=== PATIENT | male | born 1955 | race Caucasian/White ===

== ENCOUNTER 2022-02-27 15:36 | Emergency (ER) | payer MEDICARE, SELFPAY ==
[2022-02-27 15:51] VITALS: BP 134/66; PULSE 76; RESP 18; TEMP 37.2; O2SAT 97; BMI 26.1
--- NOTE | 2022-02-27 16:00 | DI.CT.S_ITS ---
PROCEDURE: CT STROKE INDICATIONS: Positive BE-FAST, Stroke symptoms TECHNIQUE: Noncontrast 4.5 mm thick angled axial sections acquired from the foramen magnum to the vertex, with coronal reformats. For radiation dose reduction, the following was used: automated exposure control, adjustment of mA and/or kV according to patient size. COMPARISON: None. FINDINGS: Image quality: Excellent. CSF spaces: Basal cisterns are patent. No extra-axial fluid collections. The ventricles are symmetric in size and shape. Brain: No intracranial bleeds or masses. There is mild cerebral volume loss for age, with resultant ventricular and sulcal prominence. There are periventricular and deep white matter chronic small vessel ischemic changes. There is intracranial internal carotid artery atherosclerosis. Skull and face: Calvarium and visualized facial bones appear intact, without suspicious lesions. Sinuses: There is a small mucous retention cyst in the right maxillary sinus. The mastoids are clear. IMPRESSION: 1. No acute intracranial abnormalities. 2. Cerebral volume loss and chronic microvascular ischemic changes. 3. A mucous retention cyst in the right maxillary sinus. The result was discussed with Dr. Casillas. This study fulfills neurological imaging criteria for inclusion or exclusion of acute stroke therapies based on available published neurological guidelines. Dictated by: Malachi Arciniega M.D. on 02/27/2022 at 16:23 Approved by: Malachi Arciniega M.D. on 02/27/2022 at 16:25
[2022-02-27 16:21] LABS: Add Manual Diff / Slide Review NO; Basophils Absolute Auto 100 /uL (0-100); Basophils Percent Auto 1.2 % (0-2); Eosinophils Absolute Auto 200 /uL (0-450); Hematocrit 41.8 % (41-53); Hemoglobin 14.4 g/dL (13.5-17.5); Lymphocytes Absolute Auto 1700 /uL (1100-4500); Lymphocytes Percent Auto 19.9 % (25-40); Mean Corpuscular HGB Conc 34.4 % (30-36); Mean Corpuscular Hemoglobin 29.7 PG (26-34); Mean Corpuscular Volume 86.2 fL (80-100); Monocytes Absolute Auto 700 /uL (0-900); Monocytes Percent Auto 8.8 % (3-14); Neutrophils Absolute Auto 5600 /uL (1500-7000); Neutrophils Percent Auto 67.1 % (50-75); Platelet Count 287 X10^3/uL (150-400); Red Blood Cell Count 4.85 X10^6/uL (4.5-5.9); Red Cell Distribution Width 14.2 % (11.6-14.8); White Blood Cell Count 8.3 X10^3/uL (4.5-11.0)
[2022-02-27 16:35] LABS: Prothrombin Time 11.5 SECONDS (10.1-12.7)
[2022-02-27 16:38] LABS: Alanine Aminotransferase 28 IU/L (<50); Albumin 4.3 g/dL (3.5-5.0); Albumin Globulin Ratio 1.3 (1.0-2.8); Alkaline Phosphatase 55 U/L (38-126); Aspartate Aminotransferase 31 IU/L (17-59); BUN Creatinine Ratio 20.2 (6-22); Bilirubin Total 0.7 mg/dL (0.2-1.3); Blood Urea Nitrogen 17 mg/dL (9-20); Calcium 9.2 mg/dL (8.4-10.2); Carbon Dioxide 27 mmol/L (22-32); Chloride 105 mmol/L (98-107); Creatine Kinase 102 U/L (55-170); Estimated Glomerular Filt Rate > 60 mL/min (>60); Globulin 3.2 g/dL (1.7-4.1); Glucose 119 mg/dL (80-110); HEMOLYSIS < 15 (0-50); PTT Partial Thromboplastin Tim 31 SECONDS (26.4-36.2); Potassium 3.5 mmol/L (3.4-5.1); Sodium 141 mmol/L (137-145); Total Protein 7.5 g/dL (6.3-8.2)
[2022-02-27 16:50] LABS: Troponin I < 0.012 ng/mL (0.01-0.034)
[2022-02-27 16:53] LABS: CKMB % Relative Index 1.4 % (1.5-5.0); Creatine Kinase MB 1.42 ng/mL (<2.37)
[2022-02-27 20:02] VITALS: BP 133/68
[2022-02-27 20:03] VITALS: PULSE 60; RESP 18; O2SAT 99
[2022-02-27 20:04] VITALS: BP 133/68; PULSE 67; RESP 16; O2SAT 100
--- NOTE | 2022-02-27 20:10 | ED_ITS ---
HPI - Headache General Chief Complaint: Headache Stated Complaint: migraine/Lt. side drooping Time Seen by Provider: 02/27/22 20:08 Mode of arrival: Ambulatory History of Present Illness HPI Narrative: 66-year-old male nonsmoker with noncontributory chronic medical history presents with a chief complaint of right-sided facial weakness that he noted this morning. He denies other symptoms such as dizziness, weakness or lightheadedness. He denies any blurred or double vision. He denies any trouble with balance or extremity numbness, tingling or weakness. He denies any chest pain or shortness of breath. He states that about 1 week ago he fell backwards and struck his head and has had lingering headaches ever since. He denies any loss of consciousness or use of blood thinners. The neurologic symptoms of his face were not noted until today. He denies any fever chills nor runny nose, sore throat or cough. Related Data Allergies Allergy/AdvReac Type Severity Reaction Status Date / Time No Known Drug Allergies Allergy Verified 02/27/22 15:55 Review of Systems Review of Systems Narrative: GENERAL: See HPI HEENT: See HPI RESPIRATORY: Denies dyspnea, cough, wheezing, hemoptysis, sputum. CARDIOVASCULAR: See HPI GASTROINTESTINAL: See HPI : Denies dysuria, frequency, incontinence, hematuria, urinary retention. MUSCULOSKELETAL: denies weakness, joint pain, or bony pain SKIN: Denies rash, skin lesions, or other NEUROLOGIC: See HPI PSYCHIATRIC: No concerning psychosocial issues. 12 point review of systems is negative except for those stated above Patient History Social History Smoking Status: Never smoker Smoking Status: Never smoker alcohol intake frequency: 3 or more drinks per day Alcohol type: beer Exam Narrative Exam Narrative: GENERAL: [66] year old patient appears stated age. Well-developed patient, in mild distress. HEAD: Atraumatic. Normocephalic. EYES: Pupils equal round and reactive. Extraocular motions intact. No scleral icterus. No injection or drainage. ENT: Nose without bleeding, purulent drainage. Throat without erythema, tonsil lar hypertrophy or exudate. Airway patent. NECK: Trachea midline. Non tender CARDIOVASCULAR: Regular rate and rhythm without murmurs, gallops, or rubs. RESPIRATORY: Clear to auscultation. Breath sounds equal bilaterally. No wheezes, rales, or rhonchi. GASTROINTESTINAL: Abdomen soft, non-tender, nondistended. EXTREMITIES: No edema or joint tenderness. BACK: Nontender without deformity or crepitance. No flank tenderness. NEURO: AOx3. SKIN: No rash or erythema of visible areas Initial Vital Signs Initial Vital Signs: Vital Signs Temperature 98.9 F 02/27/22 15:51 Pulse Rate 76 02/27/22 15:51 Respiratory Rate 18 02/27/22 15:51 Blood Pressure 134/66 02/27/22 15:51 Pulse Oximetry 97 02/27/22 15:51 Oxygen Delivery Method 02/27/22 15:51 Scores NIH Stroke Scale Level of Conciousness: Alert, keenly responsive Ask month/age: Answers both questions correctly. Open/close eyes, close hand: Performs both tasks correctly Best gaze horizontal: Normal Visual haskins: No visual loss Facial palsy: Minor paralysis, flattened nasolabial fold, asymmetry on smiling Left arm drift: No drift for full 10 sec Right arm drift: No drift for full 10 sec Left leg drift: No drift for full 5 sec Right leg drift: No drift for full 5 sec Limb ataxia: Absent Sensory on face/arms/legs: Normal, no sensory loss Best language: No aphasia, normal Dysarthria: Normal Extinction or inattention: No abnormality Total NIH Stroke scale score: 1 Course Orders Ordered: ED Orders 02/27/22 16:00 CT Stroke Stat 02/27/22 16:05 Complete Blood Count AUTO DIFF Stat Comprehensive Metabolic Panel Stat Magnesium Stat Partial Thromboplastin Time Stat Prothrombin Time INR Stat Troponin & CK Cardiac Panel Stat 02/27/22 16:25 EKG-12 Lead Stat Vital Signs Vital signs: Vital Signs - 8 hr 02/27/22 15:51 02/27/22 20:04 Temperature 98.9 F Pulse Rate 76 67 Respiratory Rate 18 16 Blood Pressure 134/66 133/68 Pulse Oximetry 97 100 Oxygen Delivery Method Room Air Room Air MDM - Headache Lab Data Result diagrams: 02/27/22 16:05 02/27/22 16:05 Labs: Lab Results 02/27/22 02/27/22 02/27/22 Range/Units 16:05 16:05 16:05 WBC 8.3 (4.5-11.0) X10^3/uL RBC 4.85 (4.5-5.9) X10^6/uL Hgb 14.4 (13.5-17.5) g/dL Hct 41.8 (41-53) % MCV 86.2 (80-100) fL MCH 29.7 (26-34) PG MCHC 34.4 (30-36) % RDW 14.2 (11.6-14.8) % Plt Count 287 (150-400) X10^3/uL Neut % (Auto) 67.1 (50-75) % Lymph % (Auto) 19.9 L (25-40) % [place] % (Auto) 8.8 (3-14) % Eos % (Auto) 3.0 (2-4) % Baso % (Auto) 1.2 (0-2) % Neut # (Auto) 5600 (6448-9923) /uL Lymph # (Auto) 1700 (2260-5536) /uL [place] # (Auto) 700 (0-900) /uL Eos # (Auto) 200 (0-450) /uL Baso # (Auto) 100 (0-100) /uL PT 11.5 (10.1-12.7) SECONDS INR 1.0 (0.9-1.3) APTT 31 (26.4-36.2) SECONDS Sodium 141 (137-145) mmol/L Potassium 3.5 (3.4-5.1) mmol/L Chloride 105 (98-107) mmol/L Carbon Dioxide 27 (22-32) mmol/L BUN 17 (9-20) mg/dL Creatinine 0.84 (0.66-1.25) mg/dL Estimated GFR > 60 (>60) mL/min BUN/Creatinine Ratio 20.2 (6-22) Glucose 119 H (80-110) mg/dL Calcium 9.2 (8.4-10.2) mg/dL Magnesium 2.0 (1.6-2.3) mg/dL Total Bilirubin 0.7 (0.2-1.3) mg/dL AST 31 (17-59) IU/L ALT 28 (<50) IU/L Alkaline Phosphatase 55 (38-126) U/L Total Creatine Kinase 102 (55-170) U/L CK-MB (CK-2) 1.42 (<2.37) ng/mL CK-MB (CK-2) Rel Index 1.4 L (1.5-5.0) % Troponin I < 0.012 (0.01-0.034) ng/mL Total Protein 7.5 (6.3-8.2) g/dL Albumin 4.3 (3.5-5.0) g/dL Globulin 3.2 (1.7-4.1) g/dL Albumin/Globulin Ratio 1.3 (1.0-2.8) Imaging Data CT scan - head: Radiologist's Impression: Close Brain CT (Signed) Graeme Arciniegathomas - 02/27/22 [place] [address] CT Scan Report Signed Patient: Celeste Leyva MR#: [id number] : 1955 Acct:[id number] Age/Sex: 66 / M Date of Service: 02/27/22 Loc: ED Accession Number: [id number] ?? Procedure: CT Stroke Ordering Provider: Jovita Casillas D.O. PROCEDURE:? CT STROKE ? INDICATIONS:? Positive BE-FAST, Stroke symptoms ? TECHNIQUE:? Noncontrast 4.5 mm thick angled axial sections acquired from the foramen magnum to the vertex, with coronal reformats.? For radiation dose reduction, the following was used:? automated exposure control, adjustment of mA and/or kV according to patient size.? ? COMPARISON:? None. ? FINDINGS:? Image quality:? Excellent.? ? CSF spaces:? Basal cisterns are patent.? No extra-axial fluid collections.? The ventricles are symmetric in size and shape.? ? Brain:? No intracranial bleeds or masses.? There is mild cerebral volume loss for age, with resultant ventricular and sulcal prominence.? There are periventricular and deep white matter chronic small vessel ischemic changes.? There is intracranial inter nal carotid artery atherosclerosis.? ? Skull and face:? Calvarium and visualized facial bones appear intact, without suspicious lesions.? ? Sinuses:? There is a small mucous retention cyst in the right maxillary sinus.? The mastoids are clear.? ? IMPRESSION:? ? 1. No acute intracranial abnormalities. 2. Cerebral volume loss and chronic microvascular ischemic changes. 3. A mucous retention cyst in the right maxillary sinus.? ? The result was discussed with Dr. Casillas. ? This study fulfills neurological imaging criteria for inclusion or exclusion of acute stroke therapies based on available published neurological guidelines.? ? ? Dictated by: Malachi Arciniega M.D. on 02/27/2022 at 16:23 ? ? Approved by: Malachi Arciniega M.D. on 02/27/2022 at 16:25 ? MDM Narrative Medical decision making narrative: Patient with right-sided facial weakness and forehead sparing has no other neurologic symptoms and a normal head CT. I had spoken with the patient and told him I was concerned for possible stroke or traumatic injury such as vertebral artery or carotid dissection that may have happened as a consequence of his fall and that advanced imaging in the form of a CT angiogram, hospitalization and further workup are strongly recommended to help evaluate, possibly treat or prevent significant life-threatening, life altering illness that could result in either , permanent disability or other. Patient initially expressed resistance and we had spoken some about my concerns and the risks of not coming in, I had to leave the room for evaluation of a critical patient and the patient left Against Medical Advice without ability to discuss further Discharge Plan Departure Patient Disposition: Left Against Medical Advice Clinical Impression: Left against medical advice Stand Alone Forms: Against Medical Advice
== END 2022-02-27 20:35 | disposition left against medical advice (07) ==
PROVIDERS: Emergency Medicine; Emergency Provider Emergency Medicine
DX: R29.810 Facial weakness (principal)
CPT/HCPCS: 36415; 70450; 80053; 82550; 82553; 83735; 84484; 85025; 85610; 85730; 93005; 99284